=== PATIENT | female | born 1970 | race Caucasian/White ===

== ENCOUNTER 2016-12-13 19:52 | Emergency (ER) | payer BC ==
[~2016-12-13] VITALS: Ht 177.8 cm; Wt 172.4 kg
--- OUTSIDE RECORDS SUMMARY | ~2016-12-13 | XMS ---
Demographics + + + | Address | [address] | | | [place] [address] | + + + | Preferred Language | Unknown | + + + | Marital Status | Unknown | + + + | Orthodoxy Affiliation | Unknown | + + + | Race | Unknown | + + + | Ethnic Group | Unknown | + + + Author + + + | Author | [facility] | + + + | Organization | [facility] | + + + | Address | [address] | | | [place] [address] | + + + | Phone | | + + + Care Team Providers + + + + | Care Power Technician Name | Role | Phone | + + + + Unavailable | Unavailable | + + + + PROBLEMS +---------+ + + +--------+ + + | Type | Condition | ICD9-CM | [id number] | Onset | Condition | SNOMED | | | | Code | Code | Dates | Status | Code | +---------+ + + +--------+ + + | Problem | Essential | | I10 | | Active | [id number] | | | hypertensi | | | | | | | | on | | | | | | +---------+ + + +--------+ + + | Problem | Morbid | | E66.01 | | Active | [id number] | | | obesity | | | | | | +---------+ + + +--------+ + + | Problem | Type 2 | E11.9 | | | Active | [id number] | | | diabetes | | | | | | | | mellitus | | | | | | +---------+ + + +--------+ + + | Problem | Dyslipidem | E78.5 | | | Active | [id number] | | | ia | | | | | | +---------+ + + +--------+ + + | Problem | GERD | | K21.9 | | Active | [id number] | | | (gastroeso | | | | | | | | phageal | | | | | | | | reflux | | | | | | | | disease) | | | | | | +---------+ + + +--------+ + + | Problem | Recurrent | | J32.9 | | Active | [id number] | | | sinusitis | | | | | | +---------+ + + +--------+ + + | Problem | Vitamin D | | E55.9 | | Active | 69138639 | | | deficiency | | | | | | +---------+ + + +--------+ + + | Problem | Seasonal | | J30.2 | | Active | 294312610 | | | allergies | | | | | | +---------+ + + +--------+ + + | Problem | Microalbum | R80.9 | | | Active | 635866992 | | | inuria | | | | | | +---------+ + + +--------+ + + | Problem | Hyperurice | | E79.0 | | Active | 04346949 | | | katerina | | | | | | +---------+ + + +--------+ + + ALLERGIES + + + + +--------+ | Substance | Reaction | Event Type | Date | Status | + + + + +--------+ | Tramadol HCl | upset stomach | Drug Allergy | Oct, | Active | + + + + +--------+ SOCIAL HISTORY No smoking Hx information available PLAN OF CARE + +---------+ | Activity | Details | + +---------+ +---+ | | +---+ + + + | Follow Up | as scheduled with PCP Reason:null | + + + VITAL SIGNS + + + + | Height | 70 in | 2016-11-01 | + + + + | Weight | 382.2 lbs | 2016-11-01 | + + + + | BMI | 54.83 kg/m2 | 2016-11-01 | + + + + | Temperature | 97.9 degrees Fahrenheit | 2016-11-01 | + + + + | Heart Rate | 67 /min | 2016-11-01 | + + + + | Blood pressure systolic | 137 mm Hg | 2016-11-01 | + + + + | Blood pressure diastolic | 81 mm Hg | 2016-11-01 | + + + + MEDICATIONS + + + + + + + +--------+ | Medicati | Instruct | Dosage | Frequenc | Start | End Date | Duration | Status | | on | ions | | y | Date | | | | + + + + + + + +--------+ | Cholecal | Orally | 1 | | 09 Mar, | | | Active | | ciferol | Once a | capsule | | 2015 | | | | | 1999 | day - | | | | | | | | UNIT | FOR LOW | | | | | | | | | VITAMIN | | | | | | | | | D LEVELS | | | | | | | + + + + + + + +--------+ | One | subcutan | as | | Feb, | | | Active | | Touch | eously | directed | | 2015 | | | | | Ultra . | as | | | | | | | | | directed | | | | | | | | | once a | | | | | | | | | day, 3 | | | | | | | | | times a | | | | | | | | | week | | | | | | | + + + + + + + +--------+ | Fluticas | Nasally | 1 spray | 24h | | | | Active | | one | Once a | in each | | | | | | | Propiona | day | nostril | | | | | | | te 50 | | | | | | | | | MCG/ACT | | | | | | | | + + + + + + + +--------+ | Calcium | Orally | 1 tablet | 12h | Mar, | | | Active | | Carbonat | Twice a | after | | 2015 | | | | | e 1250 | day | meals | | | | | | | MG | | | | | | | | + + + + + + + +--------+ | Losartan | Orally | 1 tablet | | Mar, | | | Active | | | Once a | | | 2015 | | | | | Potassiu | day - TO | | | | | | | | m 50 mg | PROTECT | | | | | | | | | YOUR | | | | | | | | | KIDNEY | | | | | | | | | FROM THE | | | | | | | | | LEAKING | | | | | | | | | PROTEIN | | | | | | | + + + + + + + +--------+ | Metformi | Orally | 1 tablet | | Mar, | | | Active | | n HCl | Twice a | with | | 2015 | | | | | 1000 MG | day for | meals | | | | | | | | DIABETES | | | | | | | + + + + + + + +--------+ | Ferrous | Orally | 1 tablet | 24h | Mar, | | | Active | | Sulfate | Once a | | | 2015 | | | | | 325 (65 | day | | | | | | | | Fe) MG | | | | | | | | + + + + + + + +--------+ | Cyanocob | Orally | 1 tablet | 24h | Mar, | | | Active | | alamin | Once a | | | 2015 | | | | | 1000 MCG | day | | | | | | | + + + + + + + +--------+ | Allopuri | Orally | 1 tablet | | Mar, | | | Active | | nol 100 | Once a | | | 2015 | | | | | mg | day- FOR | | | | | | | | | HIGH | | | | | | | | | URIC | | | | | | | | | ACID | | | | | | | | | LEVELS | | | | | | | + + + + + + + +--------+ | Polymyxi | Ophthalm | 1 drop | 4h | | | 7 day(s) | Active | | n | ic Six | into | | | | | | | B-Trimet | times a | affected | | | | | | | hoprim | day | eye | | | | | | | 71299-0. | | | | | | | | | 1 | | | | | | | | | UNIT/ML | | | | | | | | + + + + + + + +--------+ | Penicill | orally | 1 tablet | 12h | 10 Aniket, | 20 Oct, | 10 days | Active | | in V | Twice a | | | 2016 | 2016 | | | | Potassiu | day | | | | | | | | m 500 MG | | | | | | | | + + + + + + + +--------+ | Famotidi | Orally | 1 tablet | 24h | 04 September, | | | Active | | ne 20 mg | Once a | at | | 2016 | | | | | | day | bedtime | | | | | | + + + + + + + +--------+ | Pseudoep | Orally | 1 tablet | | Apr, | | | Active | | hedrine | THREE | | | 2015 | | | | | HCl 60 | TIMES A | | | | | | | | MG | DAY- | | | | | | | | | NEEDED | | | | | | | | | THREE | | | | | | | | | TIMES A | | | | | | | | | DAY FOR | | | | | | | | | CONGESTI | | | | | | | | | ON | | | | | | | + + + + + + + +--------+ RESULTS + +--------+------+ + | Name | Result | Date | Reference Range | + +--------+------+ + | Strep Gp A Rapid | | | | | (IH) | | | | + +--------+------+ + PROCEDURES + + + + + | Procedure | Date Ordered | Related Diagnosis | Body Site | + + + + + | STREP A ASSAY | November 01, 2016 | | | | W/OPTIC | | | | + + + + + | Est Level III | November 01, 2016 | | | | Intermediate | | | | + + + + + IMMUNIZATIONS No Known Immunizations"
--- OUTSIDE RECORDS SUMMARY | ~2016-12-13 | XMS ---
Demographics + + + | Address | [address] | | | [place] [address] | + + + | Preferred Language | Unknown | + + + | Marital Status | Unknown | + + + | Anabaptist Affiliation | Unknown | + + + | Race | Unknown | + + + | Ethnic Group | Unknown | + + + Author + + + | Author | [facility] | + + + | Organization | [facility] | + + + | Address | [address] | | | [place] [address] | + + + | Phone | | + + + Care Team Providers + + + + | Care Milking Worker Name | Role | Phone | + + + + Unavailable | Unavailable | + + + + PROBLEMS + + + + + + + + | Type | Condition | ICD9-CM | [id number] | Onset | Condition | SNOMED | | | | Code | Code | Dates | Status | Code | + + + + + + + + | Problem | Essential | | I10 | | Active | [id number] | | | hypertensi | | | | | | | | on | | | | | | + + + + + + + + | Problem | Morbid | | E66.01 | | Active | [id number] | | | obesity | | | | | | + + + + + + + + | Problem | Type 2 | E11.9 | | | Active | 24162021 | | | diabetes | | | | | | | | mellitus | | | | | | + + + + + + + + | Assessment | Conjunctiv | | H10.9 | 13 October, | Active | 8577319 | | | itis | | | 2017 | | | + + + + + + + + | Problem | Dyslipidem | E78.5 | | | Active | [id number] | | | ia | | | | | | + + + + + + + + | Problem | GERD | | K21.9 | | Active | [id number] | | | (gastroeso | | | | | | | | phageal | | | | | | | | reflux | | | | | | | | disease) | | | | | | + + + + + + + + | Problem | Recurrent | | J32.9 | | Active | [id number] | | | sinusitis | | | | | | + + + + + + + + | Problem | Vitamin D | | E55.9 | | Active | 55400842 | | | deficiency | | | | | | + + + + + + + + | Problem | Seasonal | | J30.2 | | Active | [id number] | | | allergies | | | | | | + + + + + + + + | Problem | Microalbum | R80.9 | | | Active | [id number] | | | inuria | | | | | | + + + + + + + + | Problem | Hyperurice | | E79.0 | | Active | 25539202 | | | katerina | | | | | | + + + + + + + + ALLERGIES + + + + +--------+ | Substance | Reaction | Event Type | Date | Status | + + + + +--------+ | Tramadol HCl | upset stomach | Drug Allergy | September, | Active | + + + + +--------+ | PCN | GI Upset | Non Drug | September, | Active | | | | Allergy | | | + + + + +--------+ SOCIAL HISTORY No smoking Hx information available PLAN OF CARE VITAL SIGNS + + + + | Height | 70 in | 2016-10-13 | + + + + | Weight | 382.2 lbs | 2016-10-13 | + + + + | BMI | 54.83 kg/m2 | 2016-10-13 | + + + + | Temperature | 97.4 degrees Fahrenheit | 2016-10-13 | + + + + | Heart Rate | 93 /min | 2016-10-13 | + + + + | Blood pressure systolic | 154 mm Hg | 2016-10-13 | + + + + | Blood pressure diastolic | 82 mm Hg | 2016-10-13 | + + + + MEDICATIONS + [...] Cholecal | Orally | 1 | | Mar, | | | Active | | ciferol | Once a | capsule | | 2015 | | | | | 2000 | day - | | | | [...] One | subcutan | as | | 26 Feb, | | | Active | | [...] Orally | 1 tablet | 12h | 09 Mar, | | | Active [...] | | | | | | | [address]-9. | | | | | | | [...] | Orally | 1 tablet | | 09 Mar, | | | [...] + + + + + +--------+ RESULTS No Results PROCEDURES + + + + + | Procedure | Date Ordered | Related Diagnosis | Body Site | + + + + + | Est Level IV | October 13, 2016 | | | | Extended | | | | + + + + + IMMUNIZATIONS No Known Immunizations"
[~2016-12-13 19:52] MED LIST: ACETAMINOPHEN-118 M1 PO; ASPIRIN EC325 MG PO; BUPROPION HCL150 M2 PO; CALCIUM500 MG PO; DEXAMETHASONE4 MG PO; FERROUS SULFAT325 MG PO; FLONASE ALLERG9.9 ML NS; HYDROCHLOROTHIA25 MG PO; IBUPROFEN800 MG PO; KEFLEX500 MG PO; LIDOCAINE40 MG/1 ML TOP; LORTAB 7.5-3251 EACH PO; LOSARTAN POTASS25 MG PO; METFORMIN HCL500 MG PO; NORCO 10-325 T1 EACH PO; NORCO 5-325 TA1 EACH PO; SUDAFED 12 HOU120 MG PO; VITAMIN B122500 MCG PO; VITAMIN C1000 MG PO; VITAMIN D2000 UNI1 PO; ZYLOPRIM100 MG PO
[2016-12-13] MEDS ORDERED: NORCO 5-325 TA1 EACH PO (20:54)
== END 2016-12-13 21:14 | disposition home or self-care (01) ==
LOC: ED 19:52
DX: S50.01XA Contusion of right elbow, initial encounter (principal); M25.521 Pain in right elbow; I10 Essential (primary) hypertension; E11.9 Type 2 diabetes mellitus without complications; Z79.899 Other long term (current) drug therapy; Z79.51 Long term (current) use of inhaled steroids; W19.XXXA Unspecified fall, initial encounter
CPT/HCPCS: 73030; 73080; 99283